=== PATIENT | male | born 1995 | race Caucasian/White ===

== ENCOUNTER 2023-08-29 23:36 | Emergency (ER) | payer MEDICAID ==
[~2023-08-29] VITALS: Ht 175.3 cm; Wt 74.8 kg
[2023-08-29 23:40] VITALS: BP 122/82; PULSE 76; RESP 18; TEMP 98; O2SAT 99
[2023-08-30] MEDS: IBUPROFEN 600 MG TAB PO ONE (01:00)
[2023-08-30] MEDS ORDERED: MIDAZOLAM 2 MG/2 ML VIAL ONE (01:01)
[2023-08-30] MEDS ORDERED: NAPR-337 PO (01:57)
[2023-08-30 02:20] VITALS: BP 106/82; PULSE 77; RESP 18; TEMP 98; O2SAT 100
== END 2023-08-30 02:21 | disposition home or self-care (01) ==
LOC: MED 23:36
DX: S52.602A Unspecified fracture of lower end of left ulna, initial encounter for closed fracture (principal); Z79.1 Long term (current) use of non-steroidal anti-inflammatories (NSAID); X58.XXXA Exposure to other specified factors, initial encounter; Y93.89 Activity, other specified; Y92.89 Other specified places as the place of occurrence of the external cause; Y99.8 Other external cause status
CPT/HCPCS: 29125; 73090; 99283; Q0092; J2250